=== PATIENT | female | born 1940 | race Caucasian/White ===

== ENCOUNTER 2023-07-02 15:10 | Emergency (ER) | payer MEDICARE, OTHER ==
[~2023-07-02] VITALS: Ht 162.6 cm; Wt 65.8 kg
[~2023-07-02 15:10] MED LIST: BENZ1TAB74 PO; DIVA-76 PO; DONE10TA41 PO; DULO60CA59 PO; MELA3CAP2 PO; MELO7.5T46 PO; MEMA10TA57 PO; MIRA50TA PO; PANT40TA52 PO; PRIM50TA33 PO
--- NOTE | 2023-07-02 15:21 | ED Fall/Injury ---
General Stated Complaint: FALL; HEAD INJ Source: patient, family Exam Limitations: no limitations History of Present Illness Date Seen by Provider: Jul 02, 2023 Time Seen by Provider: 15:13 Initial Comments 83-year-old female with no pertinent past medical history, does not take blood thinners coming in after she fell down roughly 7 stairs. She was walking out of the bathroom, turned the wrong direction and tripped down the stairs. This occurred shortly prior to arrival. She hit her head and is having severe left- sided chest wall pain where she hit it. She states it is very difficult to breathe. Tetanus is up-to-date within the past 10 years she states. She is unsure if she passed out. Otherwise denying any other acute complaints. She has been able to stand and ambulate some. Allergies and Home Medications Allergies Coded Allergies: codeine (Verified Allergy, Unknown, 07/02/23) Patient Home Medication List Home Medication List Reviewed: Yes Review of Systems Review of Systems Constitutional: No fever Eyes: No Symptoms Reported Ears, Nose, Mouth, Throat: no symptoms reported Respiratory: see HPI Cardiovascular: no symptoms reported Gastrointestinal: no symptoms reported Genitourinary: no symptoms reported Musculoskeletal: see HPI Skin: no symptoms reported Psychiatric/Neurological: See HPI Past Enuwcex-Yfdocx-Diswzu Hx Patient Social History Tobacco Use?: Yes Physical Exam Vital Signs Vital Signs - First Documented 07/02/23 07/02/23 15:12 17:10 Temp 36.6 Pulse 116 Resp 22 B/P (MAP) 144/96 (112) Pulse Ox 98 O2 Delivery Room Air O2 Flow Rate 2.00 Capillary Refill : Height, Weight, BMI Height: '" Weight: lbs. oz. kg; BMI Method: General Appearance: moderate distress HEENT: PERRL/EOMI, pharynx normal, other (Abrasion with some bleeding to the left parietal scalp with no laceration, hematoma to the right frontal scalp) Neck: non-tender, full range of motion, supple, normal inspection Cardiovascular: regular rate, rhythm, no edema Respiratory: chest non-tender, lungs clear, normal breath sounds, no respiratory distress, no accessory muscle use Gastrointestinal: normal bowel sounds, non tender, soft; No distended, No guarding, No rebound Back: normal inspection, no CVA tenderness, no vertebral tenderness Extremities: normal range of motion, non-tender, no pedal edema, no calf tenderness, normal capillary refill, other (Abrasions to the bilateral ankles without tenderness) Neurologic/Psychiatric: no motor/sensory deficits, alert, oriented x 3 Skin: normal color, warm/dry [place] Coma Score Best Eye Response: (4) Open Spontaneously Best Verbal Response: (5) Oriented Best Motor Response: (6) Obeys Commands Progress/Results/Core Measures Results/Orders Lab Results Laboratory Tests Test 07/02/23 15:24 Range/Units White Blood Count 10.1 4.3-11.0 10^3/uL Red Blood Count 4.90 3.80-5.11 10^6/uL Hemoglobin 14.3 11.5-16.0 g/dL Hematocrit 44 35-52 % Mean Corpuscular Volume 90 80-99 fL Mean Corpuscular Hemoglobin 29 25-34 pg Mean Corpuscular Hemoglobin Concent 32 32-36 g/dL Red Cell Distribution Width 13.1 10.0-14.5 % Platelet Count 389 130-400 10^3/uL Mean Platelet Volume 9.3 9.0-12.2 fL Immature Granulocyte % (Auto) 1 % Neutrophils (%) (Auto) 51 42-75 % Lymphocytes (%) (Auto) 36 12-44 % Monocytes (%) (Auto) 7 0-12 % Eosinophils (%) (Auto) 4 0-10 % Basophils (%) (Auto) 1 0-10 % Neutrophils # (Auto) 5.2 1.8-7.8 10^3/uL Lymphocytes # (Auto) 3.7 1.0-4.0 10^3/uL Monocytes # (Auto) 0.7 0.0-1.0 10^3/uL Eosinophils # (Auto) 0.4 H 0.0-0.3 10^3/uL Basophils # (Auto) 0.1 0.0-0.1 10^3/uL Immature Granulocyte # (Auto) 0.1 0.0-0.1 10^3/uL Prothrombin Time 12.4 12.2-14.7 SEC INR Comment 0.9 0.8-1.4 Activated Partial Thromboplast Time 29 24-35 SEC Sodium Level 142 135-145 MMOL/L Potassium Level 4.1 3.6-5.0 MMOL/L Chloride Level 105 98-107 MMOL/L Carbon Dioxide Level 26 21-32 MMOL/L Anion Gap 11 5-14 MMOL/L Blood Urea Nitrogen 18 7-18 MG/DL Creatinine 0.58 L 0.60-1.30 MG/DL Estimat Glomerular Filtration Rate 91 BUN/Creatinine Ratio 31 Glucose Level 117 H 70-105 MG/DL Calcium Level 9.3 8.5-10.1 MG/DL Corrected Calcium 9.3 8.5-10.1 MG/DL Total Bilirubin 0.3 0.1-1.0 MG/DL Aspartate Amino Transf (AST/SGOT) 18 5-34 U/L Alanine Aminotransferase (ALT/SGPT) < 5 0-55 U/L Alkaline Phosphatase 91 40-136 U/L Troponin I < 0.30 <0.30 NG/ML Total Protein 7.1 6.4-8.2 GM/DL Albumin 4.0 3.2-4.5 GM/DL Lipase 25 8-78 U/L My Orders Orders - CESAR PIPER MD Ct Head/Cervical Spine Wo (07/02/23 15:15) Chest 1 View Ap/Pa Only (07/02/23 15:15) Cbc With Automated Diff (07/02/23 15:15) Comprehensive Metabolic Panel (07/02/23 15:15) Lipase (07/02/23 15:15) Protime With Inr (07/02/23 15:15) Partial Thromboplastin Time (07/02/23 15:15) Troponin I [place] (07/02/23 15:15) Ed Iv/Invasive Line Start (07/02/23 15:15) Iohexol Injection (Omnipaque 350 Mg/Ml 1 (07/02/23 15:30) Received Contrast (Hold Metformin- Contr (07/02/23 15:30) Ns (Ivpb) 100 Ml (Sodium Chloride 0.9% 1 (07/02/23 15:30) Fentanyl Injection (Fentanyl Injection (07/02/23 15:28) Ondansetron Injection (Zofran Injectio (07/02/23 15:45) Ondansetron Injection (Zofran Injectio (07/02/23 15:30) Ct Chest/Abdomen/Pelvis W (07/02/23 15:38) Medications Given in ED Current Medications Medications Dose Ordered Sig/Jesús Route Start Time Stop Time Status Last Admin Dose Admin Iohexol 100 ml ONCE ONCE IV 07/02/23 15:30 07/02/23 15:31 DC 07/02/23 15:50 75 ML Ondansetron HCl 8 mg ONCE ONCE IVP 07/02/23 15:45 07/02/23 15:46 DC 07/02/23 15:42 8 MG Sodium Chloride 100 ml ONCE ONCE IV 07/02/23 15:30 07/02/23 15:31 DC 07/02/23 15:50 100 ML Vital Signs/I&O 07/02/23 07/02/23 15:12 17:10 Temp 36.6 36.5 Pulse 116 88 Resp 22 18 B/P (MAP) 144/96 (112) 129/84 Pulse Ox 98 O2 Delivery Room Air Nasal Cannula O2 Flow Rate 2.00 Progress Progress Note : Progress Note 83-year-old female presenting after mechanical fall down 7 stairs shortly prior to arrival. GCS 15 and vital stable on presentation other than she was presumed hypoxic. She was stating she could not breathe and we could not get a good waveform on the monitor due to her movements. She is moving around uncontrollably due to pain. She was placed empirically on oxygen via nasal cannula. IV was placed and basic labs were obtained. When we were able to get a waveform on 4 L oxygen she was 91%. Portable chest x-ray was obtained and interpreted by me showing lung markings all the way to the borders with no obvious large pneumothorax or hemothorax. Patient began to get nauseous after fentanyl 100 mcg. She was then given Zofran. She was taken to CT scanner and she has a fairly large left-sided parietal subdural hematoma, interpretation. I personally discussed the case with the radiologist and reviewed the CTs with them. I then contacted [facility] and discussed the case with the neurosurgeon, Dr. Jimenez as well as the emergency medicine physician. The patient will be excepted for transfer to their ER as a trauma. Diagnostic Imaging Diagonstic Imaging: Xray (chest), CT (head, c spine, chest/abd/pelvis with) Comments [facility] [place] [place] NAME: MICHAELCORRINAFRANZDEEDEE [facility] REC#: [id number] PT STATUS: REG ER : 1940 PHYSICIAN: CESAR PIPER MD ADMIT DATE: 07/02/23/ER FS Signed Date of Exam:07/02/23 CHEST 1 VIEW AP/PA ONLY EXAMINATION: Chest, one view. HISTORY: Fall. Left-sided chest pain. COMPARISON: None available. FINDINGS: The lung volumes are normal. No focal consolidation is seen. No large pleural effusion or pneumothorax is seen. The cardiomediastinal silhouette is normal in size and contour. No acute osseous abnormality is seen. IMPRESSION: 1. No acute pleural-parenchymal process. Dictated by: Dictated on workstation # [id number] Dict: 07/02/23 1540 Trans: 07/02/23 [id number] Interpreted by: BENITA ARRIAGA DO Electronically signed by: BENITA ARRIAGA DO 07/02/232 NAME: DEEDEE RODRIGUEZ [facility] REC#: [id number] PT STATUS: REG ER : 1940 PHYSICIAN: CESAR PIPER MD ADMIT DATE: 07/02/23/ER FS Signed Date of Exam:07/02/23 CT CHEST/ABDOMEN/PELVIS W EXAMINATION: CT chest, abdomen and pelvis with intravenous contrast. TECHNIQUE: Multiple contiguous axial images were obtained through the chest, abdomen and pelvis after the uneventful administration of intravenous contrast. All CT scans use one or more of the following dose optimizing techniques: Automated exposure control, MA and/or KvP adjustment based on patient size and exam type or iterative reconstruction. HISTORY: Trauma. Fell down stairs. Difficulty breathing. Chest and abdominal pain. COMPARISON: None available. FINDINGS: CT CHEST: The heart size is within normal limits. No pericardial effusion is present. There is no mediastinal, hilar, or axillary lymphadenopathy. Emphysema is noted. The lungs demonstrate no pulmonary nodules or masses. There are no focal areas of consolidation. No central endobronchial obstructing lesions are identified. There are no pleural effusions or pneumothorax. The osseous structures demonstrate no acute abnormalities. CT ABDOMEN AND PELVIS: The liver, spleen, pancreas, adrenal glands, and kidneys have a normal appearance. The gallbladder surgically absent. There is no pathologically enlarged mesenteric or retroperitoneal adenopathy. The stomach is mildly distended with ingested contents. The bowel loops are nondilated. Diverticulosis of the sigmoid colon is seen without evidence of acute diverticulitis. There is no free fluid or free air. The osseous structures demonstrate no acute abnormalities. Prior kyphoplasty changes are visualized at T11 and L1. Sacral stimulator is seen with battery pack in the right gluteal region. Ureters and bladder have a normal appearance. There is no free air, loculated collection, or adenopathy in the pelvis. IMPRESSION: 1. No acute injury is seen in the chest, abdomen, and pelvis. 2. Diverticulosis of the sigmoid colon without evidence of acute diverticulitis. 3. Emphysema. Findings were discussed with Dr. Piper at 4:00 p.m. on 07/02/[address] Arriaga. Dictated by: Dictated on workstation # [id number] Dict: 07/02/23 1603 Trans: 07/02/23 1608 [id number] Interpreted by: BENITA ARRIAGA DO Electronically signed by: BENITA ARRIAGA DO 07/02/23 1608 [facility] [place] NAME: DEEDEE [facility] REC#: [id number] PT STATUS: REG ER : 1940 PHYSICIAN: CESAR PIPER MD ADMIT DATE: 07/02/23/ER FS Signed Date of Exam:07/02/23 CT HEAD/CERVICAL SPINE WO PROCEDURE: CT head and CT cervical spine without contrast. TECHNIQUE: Multiple contiguous axial images were obtained through the brain and cervical spine without the use of intravenous contrast. Sagittal and coronal reformations through the cervical spine were then performed. Auto Exposure Controls were utilized during the CT exam to meet ALARA standards for radiation dose reduction. INDICATION: Fall. Head and neck pain. COMPARISON: None. FINDINGS: CT head: Extra-axial hemorrhage is seen overlying the left frontoparietal region measuring 1.1 cm in max thickness. No associated midline shift. No large acute territorial ischemia. No hydrocephalus. The basilar cisterns are clear. Scalp contusion is seen overlying the forehead on the right. The calvarium is intact. The visualized paranasal sinuses are clear. CT cervical spine: No acute fracture or dislocation is seen in the cervical spine. No focal osseous lesions. Vertebral body heights are well-maintained. The craniocervical junction is well-maintained. Mild degenerative changes are seen in the cervical spine with disc osteophyte complexes and uncovertebral arthropathy. Soft tissues of the neck are unremarkable. Emphysema is seen in the lung apices. IMPRESSION: 1. Acute extra-axial hemorrhage overlying the left frontoparietal region, which may represent an epidural or subdural hematoma. No associated calvarial fracture is seen. No midline shift or herniation. 2. No acute fracture or dislocation in the cervical spine. 3. Scalp contusion overlying the forehead on the right. Findings were discussed with Dr. Piper at 04:00 p.m. on 07/02/[address] Arriaga. Dictated by: Dictated on workstation # [id number] Dict: 07/02/23 1556 Trans: 07/02/23 1606 [id number] Interpreted by: BENITA ARRIAGA DO Electronically signed by: BENITA ARRIAGA DO 07/02/23 1606 Critical Care Note Critical Care Start Time: 15:13 Stop Time: 16:38 Total Time (minutes) 25 Progress Patient was at significant risk for neurologic compromise, she was being frequently reassessed for her mental status and all time spent was separate from procedures. Departure Impression Primary Impression: SDH (subdural hematoma) Disposition: 02 [facility]FER [facility] Condition: Stable Admissions Decision to Admit/Date: Jul 02, 2023 Time/Decision to Admit Time: 15:46 Transfer Transfer Reason: Exceeds level of care (needs neurosurgery) Time Spoke to Accepting Phy: 15:50 Transfer Progress Notes Discussed the case with the neurosurgeon, Dr. Gomez who is agreeable the patient needs to go there. Then discussed the case with Dr. Hall who accepted the patient to transfer to the emergency department as a trauma. Transfer Facility: [facility] Method of Transfer: Air Departure-Patient Inst. Referrals: NO,LOCAL PHYSICIAN (PCP/Family) Primary Care Physician CESAR PIPER MD Jul 02, 2023 15:20
[2023-07-02] MEDS ORDERED: fentaNYL INJECTION 100 MCG/2 ML VIAL IVP STA (15:28)
[2023-07-02] MEDS ORDERED: HOLD METFORMIN - RECEIVED CONTRAST 20 ML VIAL IV SCH (15:30)
[2023-07-02] MEDS ORDERED: ONDANSETRON 4 MG/2 ML (SDV) Z0FRAN ONE (15:30)
[2023-07-02] MEDS ORDERED: fentaNYL INJECTION 100 MCG/2 ML VIAL IVP ONE (15:30)
[2023-07-02] MEDS ORDERED: IOHEXOL 350 MG/ML 100 ML (OMNIPAQUE 350) VIAL IV ONE (15:30)
[2023-07-02] MEDS ORDERED: NS 100 ML (IVPB) BAG IV ONE (15:30)
[2023-07-02 15:42] LABS: BASOPHILS # (AUTO) 0.1 10^3/uL (0.0-0.1); BASOPHILS % (AUTO) 1 % (0-10); EOSINOPHILS # (AUTO) 0.4 10^3/uL (0.0-0.3); EOSINOPHILS % (AUTO) 4 % (0-10); HEMATOCRIT 44 % (35-52); HEMOGLOBIN 14.3 g/dL (11.5-16.0); LYMPHOCYTES # (AUTO) 3.7 10^3/uL (1.0-4.0); LYMPHOCYTES % (AUTO) 36 % (12-44); MEAN CORPUSCULAR HEMOGLOBIN 29 pg (25-34); MEAN CORPUSCULAR HGB CONC 32 g/dL (32-36); MEAN CORPUSCULAR VOLUME 90 fL (80-99); MEAN PLATELET VOLUME 9.3 fL (9.0-12.2); MONOCYTES # (AUTO) 0.7 10^3/uL (0.0-1.0); MONOCYTES % (AUTO) 7 % (0-12); NEUTROPHILS # (AUTO) 5.2 10^3/uL (1.8-7.8); NEUTROPHILS % (AUTO) 51 % (42-75); PLATELET COUNT 389 10^3/uL (130-400); WHITE BLOOD COUNT 10.1 10^3/uL (4.3-11.0)
--- NOTE | 2023-07-02 15:42 | Diagnostic Imaging Report ---
EXAMINATION: Chest, one view. HISTORY: Fall. Left-sided chest pain. COMPARISON: None available. FINDINGS: The lung volumes are normal. No focal consolidation is seen. No large pleural effusion or pneumothorax is seen. The cardiomediastinal silhouette is normal in size and contour. No acute osseous abnormality is seen. IMPRESSION: 1. No acute pleural-parenchymal process. Dictated by: Dictated on workstation # [id number]
[2023-07-02] MEDS ORDERED: ONDANSETRON 4 MG/2 ML (SDV) Z0FRAN IVP ONE (15:45)
[2023-07-02 15:47] LABS: INR 0.9 (0.8-1.4); PROTHROMBIN TIME PATIENT 12.4 SEC (12.2-14.7)
[2023-07-02 15:48] LABS: BUN/CREATININE RATIO 31; CARBON DIOXIDE 26 MMOL/L (21-32); CHLORIDE 105 MMOL/L (98-107); CREATININE SERUM 0.58 MG/DL (0.60-1.30); GFR ESTIMATED 91; POTASSIUM 4.1 MMOL/L (3.6-5.0); SODIUM 142 MMOL/L (135-145)
[2023-07-02 15:49] LABS: ALANINE AMINOTRANSFERASE < 5 U/L (0-55); ALKALINE PHOSPHATASE 91 U/L (40-136); BILIRUBIN,TOTAL 0.3 MG/DL (0.1-1.0); CALCIUM 9.3 MG/DL (8.5-10.1); GLUCOSE 117 MG/DL (70-105); LIPASE 25 U/L (8-78); TOTAL PROTEIN 7.1 GM/DL (6.4-8.2)
--- NOTE | 2023-07-02 16:05 | Diagnostic Imaging Report ---
PROCEDURE: CT head and CT cervical spine without contrast. TECHNIQUE: Multiple contiguous axial images were obtained through the brain and cervical spine without the use of intravenous contrast. Sagittal and coronal reformations through the cervical spine were then performed. Auto Exposure Controls were utilized during the CT exam to meet ALARA standards for radiation dose reduction. INDICATION: Fall. Head and neck pain. COMPARISON: None. FINDINGS: CT head: Extra-axial hemorrhage is seen overlying the left frontoparietal region measuring 1.1 cm in max thickness. No associated midline shift. No large acute territorial ischemia. No hydrocephalus. The basilar cisterns are clear. Scalp contusion is seen overlying the forehead on the right. The calvarium is intact. The visualized paranasal sinuses are clear. CT cervical spine: No acute fracture or dislocation is seen in the cervical spine. No focal osseous lesions. Vertebral body heights are well-maintained. The craniocervical junction is well-maintained. Mild degenerative changes are seen in the cervical spine with disc osteophyte complexes and uncovertebral arthropathy. Soft tissues of the neck are unremarkable. Emphysema is seen in the lung apices. IMPRESSION: 1. Acute extra-axial hemorrhage overlying the left frontoparietal region, which may represent an epidural or subdural hematoma. No associated calvarial fracture is seen. No midline shift or herniation. 2. No acute fracture or dislocation in the cervical spine. 3. Scalp contusion overlying the forehead on the right. Findings were discussed with Dr. Schrader at 04:00 p.m. on 07/02/[address] Ariraga. Dictated by: Dictated on workstation # [id number]
--- NOTE | 2023-07-02 16:08 | Diagnostic Imaging Report ---
EXAMINATION: CT chest, abdomen and pelvis with intravenous contrast. TECHNIQUE: Multiple contiguous axial images were obtained through the chest, abdomen and pelvis after the uneventful administration of intravenous contrast. All CT scans use one or more of the following dose optimizing techniques: Automated exposure control, MA and/or KvP adjustment based on patient size and exam type or iterative reconstruction. HISTORY: Trauma. Fell down stairs. Difficulty breathing. Chest and abdominal pain. COMPARISON: None available. FINDINGS: CT CHEST: The heart size is within normal limits. No pericardial effusion is present. There is no mediastinal, hilar, or axillary lymphadenopathy. Emphysema is noted. The lungs demonstrate no pulmonary nodules or masses. There are no focal areas of consolidation. No central endobronchial obstructing lesions are identified. There are no pleural effusions or pneumothorax. The osseous structures demonstrate no acute abnormalities. CT ABDOMEN AND PELVIS: The liver, spleen, pancreas, adrenal glands, and kidneys have a normal appearance. The gallbladder surgically absent. There is no pathologically enlarged mesenteric or retroperitoneal adenopathy. The stomach is mildly distended with ingested contents. The bowel loops are nondilated. Diverticulosis of the sigmoid colon is seen without evidence of acute diverticulitis. There is no free fluid or free air. The osseous structures demonstrate no acute abnormalities. Prior kyphoplasty changes are visualized at T11 and L1. Sacral stimulator is seen with battery pack in the right gluteal region. Ureters and bladder have a normal appearance. There is no free air, loculated collection, or adenopathy in the pelvis. IMPRESSION: 1. No acute injury is seen in the chest, abdomen, and pelvis. 2. Diverticulosis of the sigmoid colon without evidence of acute diverticulitis. 3. Emphysema. Findings were discussed with Dr. Schrader at 4:00 p.m. on 07/02/[address] Arriaga. Dictated by: Dictated on workstation # [id number]
[2023-07-02 17:10] VITALS: BP 129/84
== END 2023-07-02 17:07 | disposition short-term general hospital (02) ==
LOC: EDBD 15:11 → ER FS 15:11
DX: S06.5XAA Traumatic subdural hemorrhage with loss of consciousness status unknown, initial encounter (principal); S00.03XA Contusion of scalp, initial encounter; S90.512A Abrasion, left ankle, initial encounter; S90.511A Abrasion, right ankle, initial encounter; R07.89 Other chest pain; R40.2362 Coma scale, best motor response, obeys commands, at arrival to emergency department; R40.2142 Coma scale, eyes open, spontaneous, at arrival to emergency department; R40.2252 Coma scale, best verbal response, oriented, at arrival to emergency department; Z28.310 Unvaccinated for COVID-19; W10.9XXA Fall (on) (from) unspecified stairs and steps, initial encounter; W22.8XXA Striking against or struck by other objects, initial encounter; Y93.01 Activity, walking, marching and hiking
CPT/HCPCS: 36415; 51702; 70450; 71045; 71260; 72125; 74177; 80053; 83690; 84484; 85025; 85610; 85730; Q9967